=== PATIENT | female | born 1960 | race Two or more races ===

== ENCOUNTER 2025-03-13 12:31 | Emergency (ER) | payer OTHER, SELFPAY ==
[2025-03-13 12:32] VITALS: BP 114/66; PULSE 76; TEMP 36.7; O2SAT 98; BMI 31.0
--- OUTSIDE RECORDS SUMMARY | 2025-03-13 12:58 | XMS_ITS | Clinical Summary ---
Author Organization [facility] Address [address] [place] [address] Care Team Providers Care Director Funds Development Name Role Phone Arvind Mirjose Seo Primary Care Provider [phone] Source Comments 42 CFR part 2 prohibits unauthorized use or disclosure of these records.[facility] Medications MedicationSigDispense QuantityRefillsLast FilledStart DateEnd DateStatus metFORMIN (Glucophage) 500 mg tablet Take 500 mg by mouth 2 times a day07/13/2013ctive triamterene-hydroCHLOROthiazide (Maxzide) 37.5-25 mg tablet Take by mouth daily07/13/2013ctive levothyroxine (Synthroid) 75 mcg tablet Take 1 tablet by mouth daily on an empty stomach 14 tablet Active levothyroxine (Synthroid) 75 mcg tablet Take 1 tablet by mouth daily on an empty stomach 30 tablet Active lisinopril (Zestril) 40 mg tablet Take 40 mg by mouth daily07/18/2013ctive calcium carbonate-vitamin D3 600 mg-10 mcg (400 unit) chewable tablet Take 1 tablet by mouth 2 times a day 60 tablet 11010/15/2016Active sertraline (Zoloft) 50 mg tablet Take 1 tablet by mouth daily 90 tablet Active Active Problems ProblemNoted DateDiagnosed DateMultinodular jdudqj6312/27/2016Thyroid nodule 11/22/2016Low bone adhtmdw6210/15/2016 Overview (10/27/2024): * via Dexa Scan 2017- recommend f/u 2 years (left femoral neck) Social History Tobacco UseTypesPacks/DayYears UsedDateSmoking Tobacco: Never Assessed CommentsUnknownSex and Gender InformationValueDate RecordedSex Assigned at Not on fileLegal MslCoggfi74/04/2025 11:20 PM EDTGender IdentityNot on file Sexual OrientationNot on file Plan of Treatment Health MaintenanceDue DateLast DoneCommentsBone Density Scan2CT Euejrmxbfywu37/06/8242Jwtnsbdoodx76/06/1962Colorectal Cancer Vjpqoakxb74/06/1962 FIT-DNA1961FIT1961FOBT1961HIV Cqfdaeulc67/06/1962igmoidoscopy 1961TSH Level2Depression Fxhqpmiow96/06/1973Annual Exam11/08/1979 Hepatitis C Cgvmkcxcc79/06/1980DTaP/Tdap/Td Vaccines (1 - Tdap)1980Pap Smear1982Cervical Cancer Tmglesufv18/06/1992HPV/Bruwad1011/08/1991Mammogram 2001Pneumococcal Vaccine: 50+ Years (1 of 1 - PCV)11/08/2011Zoster Vaccines (1 of 2)11/08/2011COVID-19 Vaccine (1 - 2024- season)2025 Influenza Vaccine (#1)2025Respiratory Syncytial Virus (RSV) Vaccine: Adults 50+ years and Patients (1 - 1-dose 75+ series)2036HIB VaccinesAged OutNo longer eligible based on patient's age to complete this topic HPV VaccinesAged OutNo longer eligible based on patient's age to complete this topicHepatitis A VaccinesAged OutNo longer eligible based on patient's age to complete this topicHepatitis B VaccinesAged OutNo longer eligible based on patient's age to complete this topicIPV VaccinesAged OutNo longer eligible based on patient's age to complete this topicMeningococcal B VaccineAged OutNo longer eligible based on patient's age to complete this topicMeningococcal VaccineAged OutNo longer eligible based on patient's age to complete this topicRotavirus VaccinesAged OutNo longer eligible based on patient's age to complete this topic Care Teams Team MemberRelationshipSpecialtyStart DateEnd Date [address] [place] [id number] [facility] - [facility]
--- OUTSIDE RECORDS SUMMARY | 2025-03-13 12:58 | XMS_ITS | Clinical Summary ---
Author Organization [facility] Address [address] [facility] [place], [place] [address] Care Team Providers Care Converter Supervisor Name Role Phone Jordi Mata PA-C Primary Care Provider [phone] Allergies No known active allergies Medications MedicationSigDispense QuantityRefillsLast FilledStart DateEnd DateStatus JANUMET 50-500 mg Oral Tablet 09/27/2019Active amLODIPine (NORVASC) 5 mg Oral Tablet 09/28/2019Active atorvastatin (LIPITOR) 40 mg Oral Tablet 09/12/2019Active ezetimibe (ZETIA) 10 mg Oral Tablet 09/12/2019Active gabapentin (NEURONTIN) 300 mg Oral Capsule 06/22/2019Active lisinopriL (PRINIVIL) 40 mg Oral Tablet 09/29/2019Active sertraline (ZOLOFT) 50 mg Oral Tablet 09/28/2019Active triamterene-hydroCHLOROthiazide (MAXZIDE-25) 37.5-25 mg Oral Tablet 09/29/2019Active levothyroxine (SYNTHROID) 75 mcg Oral Tablet Indications:Postoperative hypothyroidismTAKE 1 TABLET DAILY ON AN EMPTY STOMACH 90 Tablet ctive traMADoL (ULTRAM) 50 mg Oral Tablet 09/23/2020ctive Active Problems No known active problems Encounters DateTypeDepartmentCare MxmcQkeouidwktq38/22/2025Travelfrom Last 3 Months Family History Medical HistoryRelationNameCommentsDiabetesFatherHeart DiseaseFatherHypertension (High Blood Pressure)FatherRelationNameStatusCommentsFather Social History Tobacco UseTypesPacks/DayYears UsedDateSmoking Tobacco: FormerSmokeless Tobacco: Never Tobacco Cessation:Counseling Given: No Alcohol UseStandard Drinks/WeekCommentsNot Currently0 (1 standard drink = 0.6 oz pure alcohol)CommentsNoSex and Gender InformationValueDate RecordedSex Assigned at BirthNot on fileLegal JgrIssqcp48/02/2019 1:58 PM EDTGender Identity Not on fileSexual OrientationNot on file Last Filed Vital Signs Vital SignReadingTime TakenCommentsBlood Aaypgomd518/7705 7:45 AM EDT Sexgt987909/17/2021 7:45 AM MYGSvnlaoyumtq73.5 ??C (97.7 ??F)09/17/2021 7:45 AM EDTRespiratory Vtmo895309/17/2021 7:45 AM EDTOxygen Xkkkuhkspb77%09/17/2021 7:45 AM EDTInhaled Oxygen Concentration--Kujgjr81.5 kg (195 lb)10/31/2021 10:46 AM BPXPnzpza269.6 cm (5' 6 )10/31/2021 10:46 AM EDTBody Mass Index31.47010/31/2021 10:46 AM EDT Plan of Treatment Health MaintenanceDue DateLast DoneCommentsDiabetic Retinal Exam1960 Hepatitis C tpsafzmar39/06/1962NonMedicare Preventative Exam2Depression Lnkskhpfe02/06/1974HIV Yppvuujvo08/06/1977Pneumococcal Vaccination, Age 50+ (1 of 2 - PCV)1980Tetanus-Diptheria Vaccines (1 - Tdap)1980Pap smear/HPV11/07/19825007Edukwsytxse11/06/2007Shingles Vaccine (1 of 2)11/08/2011[facility] [employer]PA[employer] Capture Fshfhb715Covid-19 Vaccine (Shared decision making) ( - 2024- season)2025Influenza Vaccine (#1)2025Diabetic A1C/, 10/06/2024, 06/11/2024, Additional history existsBreast Cancer Cwqljbzqb78/07/2023, 11/29/2022, 2Diabetic Kidney Health Microalb/Cr Ratio, 10/06/2024, 06/11/2024, Additional history existsDiabetic Kidney Health eGFR, 10/06/2024, 06/11/2024, Additional history exists Procedures Procedure NamePriorityDate/TimeAssociated DiagnosisCommentsCBC WITH DIFFRoutine 02/23/2025 7:32 AM EDT Essential hypertension, malignant Avitaminosis D Hyperlipidemia, unspecified hyperlipidemia type Type II or unspecified type diabetes mellitus with renal manifestations, uncontrolled(250.42) ([facility]) Goiter, simple 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[facility]) CBC/DZQIQbzalrf18/22/2025 7:32 AM EDT Essential hypertension, malignant Avitaminosis D Hyperlipidemia, unspecified hyperlipidemia type Type II or unspecified type diabetes mellitus with renal manifestations, uncontrolled(250.42) ([facility]) Goiter, simple 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[facility]) COMPREHENSIVE METABOLIC PNL, NZORPCQGoizaap61/22/2025 7:32 AM EDT Essential hypertension, malignant Avitaminosis D Hyperlipidemia, unspecified hyperlipidemia type Type II or unspecified type diabetes mellitus with renal manifestations, uncontrolled(250.42) ([facility]) Goiter, simple 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[facility]) HGA1C (HEMOGLOBIN A1C WITH EST AVG GLUCOSE)Giduhse0002/23/2025 7:32 AM EDT Essential hypertension, malignant Avitaminosis D Hyperlipidemia, unspecified hyperlipidemia type Type II or unspecified type diabetes mellitus with renal manifestations, uncontrolled(250.42) ([facility]) Goiter, simple 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[facility]) LIPID YPDNINdxjlnd65/22/2025 7:32 AM EDT Essential hypertension, malignant Avitaminosis D Hyperlipidemia, unspecified hyperlipidemia type Type II or unspecified type diabetes mellitus with renal manifestations, uncontrolled(250.42) ([facility]) Goiter, simple 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[facility]) MICROALBUMIN/CREATININE RATIO, URINE, KAXEEBDaacrpk56/22/2025 7:32 AM EDT Essential hypertension, malignant Avitaminosis D Hyperlipidemia, unspecified hyperlipidemia type Type II or unspecified type diabetes mellitus with renal manifestations, uncontrolled(250.42) ([facility]) Goiter, simple 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[facility]) VITAMIN D 25 MXRPTUqjacpl59/22/2025 7:32 AM EDT Essential hypertension, malignant Avitaminosis D Hyperlipidemia, unspecified hyperlipidemia type Type II or unspecified type diabetes mellitus with renal manifestations, uncontrolled(250.42) ([facility]) Goiter, simple 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[facility]) MAMMO BILATERAL SCREENING W NINFA-ADDL VIEWS/BREAST US REQ BY Thuan 02/05/2024 9:54 AM EDT Encounter for screening mammogram for malignant neoplasm of breast from Last 3 Months or Most Recently Relevant to Health Maintenance Results * VITAMIN D 25 TOTAL (02/23/2025 7:32 AM EDT)ComponentValueRef RangeTest Method Analysis TimePerformed AtPathologist SignatureVITAMIN D 25, TOTAL83.920.0 - 100.0 ng/mL02/23/2025 9:43 AM EDTWCONEMAUGH MINERS [facility] LABComment: <10 ng/mL: severe deficiency, could be associated with osteomalacia or rickets 10-19 ng/mL: mild to moderate deficiency, might be associated with increased risk of osteoporosis or secondary hyperparathyroidism >100 ng/mL: toxicity possible, most patients with toxicity have levels >150 ng/mL The optimal levels of vitamin D are not well established and remain controversial. The 2023 Endocrine Society Clinical Practice Guideline no longer considers 25(OH)D levels of 20-29 ng/mL insufficient for generally healthy individuals (PMID: [id number] and [id number]). Desirable vitamin D levels may differ in those with disorders of calcium homeostasis and/or metabolic bone disease. Methodology: CMIA by NeuroPace Oliver Specimen (Source)Anatomical Location / LateralityCollection Method / Volume Collection TimeReceived TimeBloodBLOOD SPECIMEN / UnknownVenipuncture / Unknown 02/23/2025 7:32 AM EDT1 8:37 AM EDT Narrative Authorizing ProviderResult TypeResult StatusMicroro TOBINNG-OTLM-IBQUWANGB ORDERABLESFinal ResultPerforming OrganizationAddressCity/State/ZIP CodePhone Number [facility] [address] [facility] [place], [place] [address], [place] [phone] * (ABNORMAL) CBC WITH DIFF (02/23/2025 7:32 AM EDT)ComponentValueRef RangeTest MethodAnalysis TimePerformed AtPathologist SignatureWBC7.33.7 - 11.0 x10??3/uL 02/23/2025 8:47 AM EDTACMH [facility]PITAL LABRBC5.213.85 - 5.22 x10??6/uL02/23/2025 8:47 AM EDTACMH [facility] ECDLKU67.8 11.5 - 16.0 g/dL02/23/2025 8:47 AM EDTACMH [facility]PITAL LABHCT 46.6(H)34.8 - 46.0 %02/23/2025 8:47 AM EDTACMH [facility]PITAL HKTVGV04.478.0 - 100.0 fL02/23/2025 8:47 AM EDTACMH [facility]PITAL SQJLZE75.326.0 - 32.0 pg02/23/2025 8:47 AM EDTACMH [facility] RUUBGZA68.931.0 - 35.5 g/dL02/23/2025 8:47 AM EDTACMH [facility]PITAL LABRDW-CV13.011.5 - 15.5 %02/23/2025 8:47 AM EDT [facility] EVYRGJUIPPWO717005 - 400 x10??3/uL02/23/2025 8:47 AM EDTACMH [facility]ITAL LABMPV8.98.7 - 12.5 fL02/23/2025 8:47 AM EDTACMH [facility]ITAL LABNEUTROPHIL %47.1%02/23/2025 8:47 AM [facility] LABLYMPHOCYTE %41.4%02/23/2025 8:47 AM [facility] LABMONOCYTE %7.8%02/23/2025 8:47 AM [facility] LABEOSINOPHIL %3.0%02/23/2025 8:47 AM [facility] LABBASOPHIL %0.4%02/23/2025 8:47 AM [facility] LABNEUTROPHIL #3.421.50 - 7.70 x10??3/uL 02/23/2025 8:47 AM [facility] LABLYMPHOCYTE #3.01 1.00 - 4.80 x10??3/uL02/23/2025 8:47 AM [facility] LABMONOCYTE #0.570.20 - 1.10 x10??3/uL02/23/2025 8:47 AM [facility] LABEOSINOPHIL #0.22<=0.50 x10 3/uL02/23/2025 8:47 AM [facility] LABBASOPHIL #<0.10 <=0.20 x10 3/uL02/23/2025 8:47 AM [facility] LABIMMATURE GRANULOCYTE %0.30.0 - 1.0 %02/23/2025 8:47 AM [facility] LABComment:The immature granulocyte fraction (IGF) quantifies total circulating myelocytes, metamyelocytes, and promyelocytes. It is used to evaluate immune responses to infection, inflammation, or other stimuli of the bone marrow. Caution is advised in interpreting test results in neonates who normally have greater numbers of circulating immature blood cells.IMMATURE GRANULOCYTE #<0.10<0.10 x10 3/uL02/23/2025 8:47 AM [facility] LABSpecimen (Source) Anatomical Location / LateralityCollection Method / VolumeCollection Time Received TimeBloodBLOOD SPECIMEN / UnknownVenipuncture / Daympcg9502/23/2025 7:32 AM EDT1 8:37 AM EDT Narrative Authorizing ProviderResult TypeResult StatusMichael Collins Mata SO-SOYZ-EZJXTODJBS ORDERABLESFinal ResultPerforming OrganizationAddressCity/State/ZIP CodePhone Number [facility] [address] [place] [address], [place] [phone] * MICROALBUMIN/CREATININE RATIO, URINE, RANDOM (02/23/2025 7:32 AM EDT)Component ValueRef RangeTest MethodAnalysis TimePerformed AtPathologist Signature CREATININE RANDOM URINE66.71No reference intervals are established mg/dL 02/23/2025 9:11 AM [facility] LABComment:Urine creatinine is used to adjust for specimen concentration or dilution. It does not necessarily speak to abnormality in a random urine specimen.MICROALBUMIN RANDOM URINE0.5No reference intervals are established mg/dL02/23/2025 9:11 AM [facility] LABMICROALBUMIN/CREATININE RATIO RANDOM URINE7.5<30.0 mg/g1 9:11 AM [facility] Comment: Microalbuminuria, 30 - 299 mg/g Clinical albuminuria, >=300 mg/g Specimen (Source)Anatomical Location / LateralityCollection Method / Volume Collection TimeReceived TimeUrineURINE SPECIMEN / UnknownCollection / Unknown 02/23/2025 7:32 AM EDT1 8:37 AM EDT Narrative Authorizing ProviderResult TypeResult StatusMicmelval Collins Esperanza TOBINON-LAIM-EQOMBUJZBA ORDERABLESFinal ResultPerforming OrganizationAddressCity/State/ZIP CodePhone Number [facility] [address] [place] [address], [place] [phone] * (ABNORMAL) COMPREHENSIVE METABOLIC PNL, FASTING (02/23/2025 7:32 AM EDT) ComponentValueRef RangeTest MethodAnalysis TimePerformed AtPathologist ZevjgxfshTBNZTN474490 - 145 mmol/L1 9:23 AM [facility] LABPOTASSIUM3.93.5 - 5.1 mmol/L1 9:23 AM [facility] BRRWVAOWHLC07920 - 111 mmol/L1 9:23 AM [facility] LABCO2 YTQGV2150 - 31 mmol/L1 9:23 AM [facility] LABANION GAP74 - 13 mmol/L 02/23/2025 9:23 AM [facility] GAULYA554 - 25 mg/dL 02/23/2025 9:23 AM [facility] LABCREATININE0.680.60 - 1.05 mg/dL02/23/2025 9:23 AM [facility] LAB BUN/CREA RYUTF226 - 221 9:23 AM [facility] LABeGFRcr - FEMALE>90>=60 mL/min/1.73m 9:23 AM [facility] LABComment: Estimated Glomerular Filtration Rate (eGFR) is calculated using the gender- dependent CKD-EPI (2020)equation, intended for patients 18 years of age and older. If patient sex is not documented, or if patient sex and gender are incongruent, eGFR results calculated for both male and female will be reported. Recommend correlation and careful interpretation of patient history, keeping in mind that serum creatinine is influenced by hormone therapy. Stage, GFR, Classification G1, 90, Normal or High G2, 60-89, Mildly decreased G3a, 45-59, Mildly to moderately decreased G3b, 30-44, Moderately to severely decreased G4, 15-29, Severely decreased G5, <15, Kidney failure In the absence of kidney damage, neither G1 or G2 fulfill criteria for CKD per KDIGO. ALBUMIN4.23.4 - 4.8 g/dL02/23/2025 9:23 AM [facility] LABCALCIUM9.58.6 - 10.3 mg/dL02/23/2025 9:23 AM [facility] LABComment:Gadolinium-containing contrast can interfere with calcium measurement.BAECAGO397(H)70 - 99 mg/dL02/23/2025 9:23 AM [facility] LABALKALINE GFARNZKISCG1349 - 130 U/L1 9:23 AM EDT [facility] LABALT (SGPT)22<31 U/L1 9:23 AM EDT [facility] LABAST (SGOT)2211 - 34 U/L1 9:23 AM [facility] LABBILIRUBIN TOTAL0.40.3 - 1.3 mg/dL 02/23/2025 9:23 AM [facility] LABComment:Naproxen therapy can falsely elevate total bilirubin levels.PROTEIN TOTAL6.95.6 - 7.6 g/dL02/23/2025 9:23 AM [facility] LABSpecimen (Source) Anatomical Location / LateralityCollection Method / VolumeCollection Time Received TimeBloodBLOOD SPECIMEN / UnknownVenipuncture / Hohwnqu0502/23/2025 7:32 AM EDT1 8:37 AM EDT Narrative Authorizing ProviderResult TypeResult StatusMicroro THOMAS-CHEMISTRY ORDERABLESFinal ResultPerforming OrganizationAddressCity/State/ZIP CodePhone Number [facility] [address] [place] [address], * (ABNORMAL) HGA1C (HEMOGLOBIN A1C WITH EST AVG GLUCOSE) (02/23/2025 7:32 AM EDT)ComponentValueRef RangeTest MethodAnalysis TimePerformed AtPathologist SignatureHEMOGLOBIN A1C7.0(H)<=5.7 %02/23/2025 9:08 AM [facility] LABESTIMATED AVERAGE LJPYCTI737qg/dL02/23/2025 9:08 AM EDT [facility] LABSpecimen (Source)Anatomical Location / LateralityCollection Method / VolumeCollection TimeReceived TimeBloodBLOOD SPECIMEN / UnknownVenipuncture / Mgvwnft2202/23/2025 7:32 AM EDT1 8:37 AM EDT Narrative [facility] - 02/23/2025 9:08 AM EDT ADA endorsed glycated hemoglobin decision points: 5.7-6.4% Pre-Diabetes >6.5% Diabetes The Hemoglobin A1C% can be falsely decreased when hemoglobin F is present at concentrations greaterthan 5% with chemistry-based glycated hemoglobin assays. This may require testing using an alternate method, such as HPLC. Please contact the laboratory or consider an alternate test method if the reported Hemoglobin A1C% appears low for the clinical senario. Authorizing ProviderResult TypeResult StatusMicroro TOBINZW-COKM-VYKSNNVBGP ORDERABLESFinal ResultPerforming OrganizationAddressCity/State/ZIP CodePhone Number [facility] [address] [place] [address], * (ABNORMAL) LIPID PANEL (02/23/2025 7:32 AM EDT)ComponentValueRef RangeTest MethodAnalysis TimePerformed AtPathologist CndztmkdbJYJMTUDUJPT916354 - 200 mg/dL02/23/2025 9:23 AM [facility] LABHDL CHOL44(L) >=50 mg/dL02/23/2025 9:23 AM [facility] CCGXQCVTADXEL042(H)<150 mg/dL02/23/2025 9:23 AM [facility] LABLDL FQLH935(H)<100 mg/dL02/23/2025 9:23 AM [facility] LABComment: LDL is calculated using Dinesh Equation developed at [facility] (Dinesh Bautista et al. FENG Cardiol. 2020. PMID: [id number]). ?? <100 mg/dL, Optimal 100-129 mg/dL, Near/Above Optimal 130-159 mg/dL, Borderline High 160-189 mg/dL, High >=190 mg/dL, Very high VLDL CALC27<30 mg/dL02/23/2025 9:23 AM [facility]TACMH [facility] NON-QDB851<=190 mg/dL02/23/2025 9:23 AM [facility] CHOL/HDL RATIO4. 9:23 AM EDTACMH [facility] LAB Specimen (Source)Anatomical Location / LateralityCollection Method / Volume Collection TimeReceived TimeBloodBLOOD SPECIMEN / UnknownVenipuncture / Unknown 02/23/2025 7:32 AM EDT1 8:37 AM EDT Narrative Authorizing ProviderResult TypeResult StatusMichaesunny TOBINPI-KOWR-QRIYDNONW ORDERABLESFinal ResultPerforming OrganizationAddressCity/State/ZIP CodePhone Number [facility] [address] [place] [address], * MAMMO BILATERAL SCREENING W NINFA-ADDL VIEWS/BREAST US REQ BY RAD (02/05/2024 9:54 AM EDT)Anatomical RegionLateralityModalityBreast, WTZ, [facility], CCM, UHC, PVH, STJ, RMH, BRX, SMR, BMC, JMC, SHELLY, UTN, WHL, HRS, BRN, PRN BilateralMammographySpecimen (Source)Anatomical Location / Laterality Collection Method / VolumeCollection TimeReceived Time02/08/2024 5:34 PM EDT Impressions 02/08/2024 5:36 PM EDT There is no mammographic evidence of breast malignancy. BI-RADS CATEGORY: ??1: ??Negative RECOMMENDATION: RETURN FOR BILATERAL ANNUAL MAMMOGRAPHIC SURVEILLANCE. THE PATIENT'S INFORMATION, INCLUDING THE TARGET DATE OF FOLLOW-UP IMAGING, WERE ENTERED INTO AN AUTOMATIC REMINDER SYSTEM. Mammography is the best non-invasive test available for detecting breast cancer. However, a mammogram which shows no evidence of cancer does not mean the patient is cancer free. Studies have shown that approximately 15% of breast cancers are not detectable on mammograms. Because mammography does not detect all malignancy, we suggest you follow the [employer] Recommendations: 1. Monthly Breast Self-Examinations. 2. Annual Physical Examination of the Breast by a Physician. 3. Screening Mammography Yearly After the Age of 40. If you have any symptoms or other breast concerns, please contact your physician. To fulfill the mandatory Breast Density Notification Act the patient has been given information regarding their breast density. Dictating Radiologist: ??Khalif Whitaker ?? [facility], [facility] [address], Radiologist location ID: [id number] Narrative 02/08/2024 5:36 PM EDT LENKA BORJA Female, 63 years old. MAMMO BILAT SCREENING W NINFA-ADDL VIEWS/BREAST US REQ BY RAD performed on 02/05/2024 9:54 AM. CLINICAL HISTORY: ??63 years old Female for screening digital breast tomosynthesis. No current breast complaints reported. Family history of breast carcinoma: None. Z12.31: Encounter for screening mammogram for malignant neoplasm of breast, ROUTINE SCREENING PREVIOUS MAMMOGRAMS REVIEWED: 2017 through 2022 . TECHNIQUE: Digital CC and MLO mammographic views of both breasts were obtained. Digital breast tomosynthesis views and digital reconstructed C-views were also obtained. Computer aided detection (CAD)was utilized. ?? FINDINGS: The breasts are almost entirely fatty. Right breast: No suspicious masses, calcifications or areas of architectural distortion are identified. Left breast: No suspicious masses, calcifications or areas of architectural distortion are identified. Procedure Note Khalif Whitaker MD - 02/08/2024 LENKA BORJA Female, 63 years old. MAMMO BILAT SCREENING W NINFA-ADDL VIEWS/BREAST US REQ BY RAD performedon 02/05/2024 9:54 AM. CLINICAL HISTORY: 63 years old Female for screening digital breasttomosynthesis. No current breast complaints reported. Family history ofbreast carcinoma: None. Z12.31: Encounter for screening mammogram for malignant neoplasm ofbreast, ROUTINE SCREENING PREVIOUS MAMMOGRAMS REVIEWED: 2017 through 2022 . TECHNIQUE: Digital CC and MLO mammographic views of both breasts wereobtained. Digital breast tomosynthesis views and digital reconstructedC-views were also obtained. Computer aided detection (CAD) was utilized. FINDINGS: The breasts are almost entirely fatty. Right breast: No suspicious masses, calcifications or areas ofarchitectural distortion are identified. Left breast: No suspicious masses, calcifications or areas ofarchitectural distortion are identified. IMPRESSION: There is no mammographic evidence of breast malignancy. BI-RADS CATEGORY: 1: Negative RECOMMENDATION: RETURN FOR BILATERAL ANNUAL MAMMOGRAPHIC SURVEILLANCE. THE PATIENT'SINFORMATION, INCLUDING THE TARGET DATE OF FOLLOW-UP IMAGING, WERE ENTEREDINTO AN AUTOMATIC REMINDER SYSTEM. Mammography is the best non-invasive test available for detecting breastcancer. However, a mammogram which shows no evidence of cancer does notmean the patient is cancer free. Studies have shown that approximately 15%of breast cancers are not detectable on mammograms. Because mammography does not detect all malignancy, we suggest you followthe [employer] Recommendations: 1. Monthly Breast Self-Examinations. 2. Annual Physical Examination of the Breast by a Physician. 3. Screening Mammography Yearly After the Age of 40. If you have any symptoms or other breast concerns, please contact yourphysician. To fulfill the mandatory Breast Density Notification Act the patient hasbeen given information regarding their breast density. Dictating Radiologist: Khalif Whitaker [facility], [facility], Radiologist location ID: [id number] Authorizing ProviderResult TypeResult StatusMichael Collins TOBIN-CMAMMO ORDERABLES Final Result from Last 3 Months or Most Recently Relevant to Health Maintenance Insurance MemberSubscriberPlan / Payer (Effective 2024-Present)Name:Lenka Borja Relation to Subscriber:SelfName:Lenka Borja Payer ID:[id number] Type:Non Managed Care Address: [address] [place] [address] Care Teams Team MemberRelationshipSpecialtyStart DateEnd Date Jordi Mata, PANarayanC [address] [place] [id number] PCP - GeneralPHYSICIAN GHHFPOCCC70/22/25
--- NOTE | 2025-03-13 13:03 | XR_ITS ---
The [address] [address] Patient Name: TOI BORJA MRN: [id number] date: 1960 Sex: F Assigned Patient Location: ER Current Patient Location: ED.MAIN Accession/Order Number: [id number] Exam Date: 03/13/2025 13:28 Report Date: 03/13/2025 14:14 At the request of: BHARATH COOPER DO Procedure: XR knee LT 4V XR knee LT 4V 03/13/2025 1:33 PM SIGNS AND SYMPTOMS: Fall, left knee pain PROTOCOL: 4 views of the left knee COMPARISON: None FINDINGS: There is a transversely oriented patellar fracture with the superior fragment subluxed cranially by 2.8 cm in respect to the inferior fragment. There is prepatellar soft tissue swelling with a large joint effusion. The weightbearing joint spaces are preserved. No additional fractures. XR/XR knee LT 4V IMPRESSION: There is a transversely oriented patellar fracture with the superior fragment subluxed cranially by 2.8 cm in respect to the inferior fragment. There is prepatellar soft tissue swelling with a large joint effusion. Impression dictated by: Constantin Tolbert M.D. 03/13/2025 2:14 PM Dictation Location: [place] [address] Electronically authenticated by: [id number] Y Date: 03/13/2025 14:14
[2025-03-13] MEDS: HYDROCODONE/ACET 5-325 MG TABLET 2 TAB PO (13:10)
--- NOTE | 2025-03-13 18:27 | ED.GENADUL1 ---
HPI HPI - General Adult General Chief complaint: Extremity Injury, Lower Stated complaint: KNEE IMJURY Time Seen by Provider: 03/13/25 12:40 Source: patient Mode of arrival: ambulance History of Present Illness HPI narrative: Patient is a 64-year-old female presenting to the emergency department for evaluation of left knee injury. Patient states that she tripped in her house earlier today, and landed on her left knee. She states she felt a pop, reported to the ED. She has been able to ambulate, however with significant pain. She denies any prior surgery to the left knee. She denies any other injuries. She did not hit her head or lose consciousness. She is not on blood thinners. Related Data Allergies Allergy/AdvReac Type Severity Reaction Status Date / Time No Known Drug Allergies Allergy Verified 03/13/25 12:35 Review of Systems ROS Status of ROS 10 or more systems reviewed and unremarkable except as noted in history and below [facility] Medical History (Updated 03/13/25 @ 13:49 by Elvis Torres, DO) Hypothyroid ?E03.9 - Hypothyroidism, unspecified (ICD-10) HTN (hypertension) ?I10 - Essential (primary) hypertension (ICD-10) Social History Little interest or pleasure in doing things: not at all Feeling down, depressed, or hopeless: not at all Exam Narrative Exam Narrative: CONSTITUTIONAL: In mild distress secondary pain, answering questions and following commands appropriately SKIN: Was warm and dry. EYES: Sclerae white. EARS, NOSE, THROAT: Moist oral mucosa. RESPIRATORY: Clear to auscultation bilaterally, no wheezes, crackles, or stridor, no use of accessory muscles CARDIOVASCULAR: Normal rate and regular rhythm. There is no S3, S4, murmur, rub. 2+ DP pulses bilaterally. GASTROINTESTINAL: Abdomen is nondistended. MUSCULOSKELETAL: The left knee is tender to palpation throughout. There is significant soft tissue swelling/effusion of the left knee. Knee is stable with ligamentous testing to varus/valgus/[place]/posterior drawer testing. NEUROLOGIC: Patient is awake and alert. Sensation intact to light touch in the left lower extremity. Facies were symmetrical. Constitutional Vital Signs, click to edit/add: Last Vital Signs Temp 98.0 F 03/13/25 12:32 Pulse 76 03/13/25 12:32 Resp 18 03/13/25 12:32 BP 114/66 03/13/25 12:32 Pulse Ox 98 03/13/25 12:32 O2 Del Method Room Air 03/13/25 12:32 Course Vital Signs Vital signs: Vital Signs Temperature 98.0 F 03/13/25 12:32 Pulse Rate 76 03/13/25 12:32 Respiratory Rate 18 03/13/25 12:32 Blood Pressure 114/66 03/13/25 12:32 Pulse Oximetry 98 03/13/25 12:32 Oxygen Delivery Method Room Air 03/13/25 12:32 Temperature 98.0 F 03/13/25 12:32 Pulse Rate 76 03/13/25 12:32 Respiratory Rate 18 03/13/25 12:32 Blood Pressure 114/66 03/13/25 12:32 Pulse Oximetry 98 03/13/25 12:32 Oxygen Delivery Method Room Air 03/13/25 12:32 Medical Decision Making MDM Narrative Medical decision making narrative: Patient is a 64 old female presenting to the emergency room with left knee pain after mechanical fall from standing height. Vital signs on arrival are within normal limits. She is afebrile and hemodynamically stable. She is tender to palpation about the left knee. She is neurovascularly intact in the left lower extremity. Differential diagnose includes ligamentous injury, patellar fracture, meniscus injury, or other acute injuries. X-rays were obtained. She is given oral [place] for pain. X-rays of the left knee independently reviewed and interpreted by myself and radiology demonstrated a transversely oriented patellar fracture with the superior fragment subluxed cranially by 2.8 cm in respect to the inferior fragment. Due to the patient stable for discharge. She was placed in a knee immobilizer and made nonweightbearing. She was given crutches. Patient lives in [place], she is instructed to follow-up with orthopedic surgery in the next 3 to 5 days when she returns home. Return precautions were given including any new or concerning symptoms. Patient understands and agrees to the plan. FINAL IMPRESSION: #Acute left patellar fracture DISPOSITION: Discharged home CONDITION: Good Imaging Data Left knee xray: Attestation: I personally reviewed and interpreted this imaging study as follows: Radiologist's impression: ITS Impressions Knee X-Ray 03/13/25 13:03 IMPRESSION: There is a transversely oriented patellar fracture with the superior fragment subluxed cranially by 2.8 cm in respect to the inferior fragment. There is prepatellar soft tissue swelling with a large joint effusion. Impression dictated by: Constantin Tolbert M.D. 03/13/2025 2:14 PM Dictation Location: [place] [id number] Electronically authenticated by: [id number] Y Date: 03/13/2025 14:14 Discharge Plan Discharge Chief Complaint: Extremity Injury, Lower Clinical Impression: Patella fracture Patient Disposition: Home, Self-Care Time of Disposition Decision: 13:49 Condition: Good Mode of Transportation: Private Vehicle Print Language: [place] Instructions: Patellar Fracture (ED) Additional Instructions: Follow up with orthopedic doctor in your hometown in 3-5 days. Referrals: Physician,Non-Staff, MD [Primary Care Provider] - 1 week Discharge Date/Time: 03/13/25 14:21
== END 2025-03-13 14:21 | disposition home or self-care (01) ==
PROVIDERS: Emergency Provider Student in an Organized Health Care Education/Training Program
DX: S82.032A Displaced transverse fracture of left patella, initial encounter for closed fracture (principal); M25.562 Pain in left knee; W18.39XA Other fall on same level, initial encounter
CPT/HCPCS: 73564; 99283